=== PATIENT | female | born 1965 | race Caucasian/White ===

== ENCOUNTER 2017-02-20 03:04 | Emergency (ER) | payer OTHER ==
[~2017-02-20] VITALS: Ht 157.5 cm; Wt 53.1 kg
[2017-02-20 03:12] VITALS: BP 102/66
[2017-02-20 04:34] LABS: Basophils # (auto) 0.1 uL; Basophils % (auto) 0.5 % (0.0-2.0); Eosinophils # (auto) 0.1 uL; Eosinophils % (auto) 0.7 % (0.0-7.0); Lymphocytes # (auto) 1.1 uL; Lymphocytes % (auto) 8.8 % (10.0-50.0); Mean Corpuscular Hemoglobin 29.9 pg (28.0-32.0); Mean Corpuscular Hgb Conc. 33.3 g/dL (32.0-36.0); Mean Corpuscular Volume 89.8 fL (80.0-100.0); Mean Platelet Volume 8.7 fL (6.9-10.8); Monocytes # (auto) 0.7 uL; Neutrophils # (auto) 10.3 uL; Nucleated Red Blood Cells % 0.1 %; Platelet Count (auto) 219 10^3/uL (140-450); Red Cell Distribution Width 13.6 % (11.8-14.3); White Blood Cell 12.3 10^3/uL (4.4-10.8)
[2017-02-20 04:56] LABS: Albumin 3.6 g/dL (3.4-5.0); BUN/Creatinine Ratio 25.4; Bilirubin, Total 0.7 mg/dL (0.2-1.0); Calcium 8.8 mg/dL (8.5-10.1); Potassium 3.8 mmol/L (3.5-5.1); Total Protein 6.8 g/dL (6.4-8.2)
== END 2017-02-20 05:30 | disposition left against medical advice (07) ==
LOC: ER 03:04 → EDBD 03:04 → ER 05:30
DX: R10.9 Unspecified abdominal pain (principal); T62.91XA Toxic effect of unspecified noxious substance eaten as food, accidental (unintentional), initial encounter; Z53.21 Procedure and treatment not carried out due to patient leaving prior to being seen by health care provider; Y92.89 Other specified places as the place of occurrence of the external cause
CPT/HCPCS: 36415; 74176; 80053; 82150; 83690; 85025

== ENCOUNTER 2023-06-20 05:06 | Emergency (ER) | payer BC, OTHER ==
[~2023-06-20] VITALS: Ht 157.5 cm; Wt 60.0 kg
[2023-06-20 07:42] VITALS: BP 129/83; PULSE 87; RESP 16; TEMP 96.6; O2SAT 99
[2023-06-20] MEDS: cefTRIAXone SOD 1,000 MG VL IM ONE (07:50)
[2023-06-20] MEDS ORDERED: OFL50TS OT (07:56)
[2023-06-20] MEDS ORDERED: AUG875T PO (07:56)
== END 2023-06-20 08:01 | disposition home or self-care (01) ==
LOC: ER 05:06
DX: H66.002 Acute suppurative otitis media without spontaneous rupture of ear drum, left ear (principal); Z88.2 Allergy status to sulfonamides; Z88.6 Allergy status to analgesic agent
CPT/HCPCS: 96372; 99283; J0696